=== PATIENT | male | born 1975 | race Hispanic/Latino ===

== ENCOUNTER 2018-08-30 22:48 | Emergency (ER) | payer BC ==
[2018-08-30] MEDS ORDERED: SODIUM CHLORIDE 0.9% 1000ML 2,000 ML IV ONE (23:41)
[2018-08-30 23:46] LABS: EOSINOPHILS % (AUTO) 1.1 % (0.0-8.0); HEMATOCRIT 43.8 % (42-54); LYMPHOCYTES % (AUTO) 34.1 % (21.0-51.0); MEAN CORPUSCULAR HGB CONC 34.5 g/dL (32.0-36.0); MEAN CORPUSCULAR VOLUME 86.9 fL (79-99); MONOCYTES % (AUTO) 6.5 % (3.0-13.0); NEUTROPHILS % (AUTO) 57.3 % (40.0-77.0); PLATELET COUNT (AUTO) 276 K/uL (130-400); RED BLOOD CELL COUNT(AUTO) 5.05 MIL/uL (4.50-6.20); RED CELL DISTRIBUTION WIDTH 12.9 % (11.0-15.5); WHITE BLOOD COUNT (AUTO) 9.1 K/uL (4.8-10.8)
[2018-08-31 00:02] LABS: CREATININE 0.9 mg/dL (0.5-1.5); POTASSIUM 3.8 mmol/L (3.5-5.1)
[2018-08-31 00:06] LABS: ALBUMIN 3.6 g/dL (3.5-5.0); BILIRUBIN,TOTAL 0.3 mg/dL (0.2-1.0); TOTAL PROTEIN, SERUM 7.6 g/dL (6.0-8.3)
[2018-08-31 00:11] LABS: ABG OXYGEN SATURATION 45.1 % (95.0-99.0); BASE EXCESS,VENOUS BLOOD GAS -1.3 (-2.0-3.0); HCO3,VENOUS BLOOD GAS 24.7 (21.0-28.0); PCO2,VENOUS BLOOD GAS 46 (35-48); PH,VENOUS BLOOD GAS 7.348 (7.350-7.450)
[2018-08-31] MEDS ORDERED: SODIUM CHLORIDE 0.9% 1000ML 1,000 ML IV ONE (00:45)
[2018-08-31] MEDS ORDERED: INSULIN HUMULIN R 100 UNIT/ML 3ML ONE (00:49)
== END 2018-08-31 01:54 | disposition home or self-care (01) ==
LOC: EDH 22:48
DX: E11.65 Type 2 diabetes mellitus with hyperglycemia (principal); E86.0 Dehydration; R35.0 Frequency of micturition; I10 Essential (primary) hypertension; E78.5 Hyperlipidemia, unspecified; Z98.890 Other specified postprocedural states
CPT/HCPCS: 36415; 36600; 80053; 82010; 82550; 82803; 82948 ×2; 83605; 85025; 96361; 96374; 99285; J1815; J7030 ×2

== ENCOUNTER 2023-09-04 17:48 | Emergency (ER) | payer BC, OTHER ==
[~2023-09-04] VITALS: Ht 165.1 cm; Wt 93.4 kg
[2023-09-04 17:53] VITALS: BP 130/75; PULSE 87; RESP 20
[2023-09-04] MEDS ORDERED: IBUP-2070 PO (19:43)
[2023-09-04] MEDS: KETOROLAC 30MG VIAL (30MG/ML) IM ONE (19:45)
== END 2023-09-04 19:50 | disposition home or self-care (01) ==
LOC: EDH 17:48 → EEVIPCON 17:48 → EDH 19:50
DX: K42.9 Umbilical hernia without obstruction or gangrene (principal); E11.9 Type 2 diabetes mellitus without complications; Z98.890 Other specified postprocedural states
CPT/HCPCS: 99283; 96372; J1885